=== PATIENT | female | born 1995 | race Caucasian/White ===

== ENCOUNTER 2018-03-28 02:48 | Emergency (ER) | payer BC, OTHER ==
[~2018-03-28] VITALS: Ht 154.9 cm; Wt 71.0 kg
[~2018-03-28 02:48] MED LIST: IBUP-1223 PO
[2018-03-28] MEDS ORDERED: METOCLOPRAMIDE 5 MG/ML, 2ML ONE (03:18)
[2018-03-28] MEDS ORDERED: MORPHINE SULFATE 4 MG/ML, 1ML ONE (03:18)
[2018-03-28 03:29] LABS: MICROSCOPIC AUTO
[2018-03-28] MEDS ORDERED: MORPHINE SULFATE 4 MG/ML, 1ML IVPush PRN (03:30)
[2018-03-28] MEDS ORDERED: METOCLOPRAMIDE 5 MG/ML, 2ML IVPush ONE (03:30)
[2018-03-28 03:36] LABS: BASOPHILS # (AUTO) 0.03 x10^3/uL (0-0.1); BASOPHILS % (AUTO) 0 % (0-1); EOSINOPHILS # (AUTO) 0.04 x10^3/uL (0-0.4); EOSINOPHILS % (AUTO) 1 % (1-7); LYMPHOCYTES # (AUTO) 1.74 x10^3/uL (1-3.4); LYMPHOCYTES % (AUTO) 21 % (22-44); MD NO; MEAN CORPUSCULAR HEMOGLOBIN 30.4 pg (27.0-34.8); MEAN CORPUSCULAR HGB CONC 33.7 g/dL (32.4-35.8); MEAN CORPUSCULAR VOLUME 90.2 fL (80-100); MEAN PLATELET VOLUME 8.3 fL (7.4-10.4); MONOCYTES # (AUTO) 0.53 x10^3/uL (0.2-0.8); MONOCYTES % (AUTO) 6 % (2-9); NEUTROPHILS # (AUTO) 6.14 x10^3/uL (1.8-6.8); NEUTROPHILS % (AUTO) 72 % (42-75); PLATELET COUNT 207 x10^3/uL (130-400); RED BLOOD COUNT 4.56 x10^6/uL (3.82-5.3); RED CELL DISTRIBUTION WIDTH 13.6 % (9.6-15.2)
[2018-03-28 03:37] LABS: CULTURE INDICATED? YES
[2018-03-28 03:48] LABS: ALANINE AMINOTRANSFERASE 56 U/L (12-78); ALBUMIN 3.8 g/dL (3.4-5.0); ANION GAP 9 mmol/L (5-15); CALCIUM 8.5 mg/dL (8.5-10.1); CHLORIDE 106 mmol/L (98-107); CREATININE 0.92 mg/dL (0.55-1.02)
[2018-03-28 03:52] LABS: ALKALINE PHOSPHATASE 60 U/L (45-117); BILIRUBIN,TOTAL 0.7 mg/dL (0.2-1.0); TOTAL PROTEIN 7.2 g/dL (6.4-8.2)
[2018-03-28 05:10] VITALS: BP 99/55
== END 2018-03-28 05:13 | disposition home or self-care (01) ==
LOC: ED 05:05
DX: K80.20 Calculus of gallbladder without cholecystitis without obstruction (principal)
CPT/HCPCS: 36415; 76700; 80053; 81001; 83690; 84703; 85025; 87086; 96374; 96375; 99285; J2765

== ENCOUNTER 2019-01-11 05:56 | Day surgery (SDC) | payer BC, MEDICAID, OTHER ==
[~2019-01-11] VITALS: Ht 154.9 cm; Wt 75.0 kg
[2019-01-11 07:01] LABS: BASOPHILS # (AUTO) 0.02 x10^3/uL (0-0.1); BASOPHILS % (AUTO) 0 % (0-1); EOSINOPHILS # (AUTO) 0.11 x10^3/uL (0-0.4); EOSINOPHILS % (AUTO) 2 % (1-7); LYMPHOCYTES # (AUTO) 2.17 x10^3/uL (1-3.4); LYMPHOCYTES % (AUTO) 37 % (22-44); MD NO; MEAN CORPUSCULAR HEMOGLOBIN 30.9 pg (27.0-34.8); MEAN CORPUSCULAR HGB CONC 33.4 g/dL (32.4-35.8); MEAN CORPUSCULAR VOLUME 92.3 fL (80-100); MEAN PLATELET VOLUME 8.1 fL (7.4-10.4); MONOCYTES # (AUTO) 0.42 x10^3/uL (0.2-0.8); MONOCYTES % (AUTO) 7 % (2-9); NEUTROPHILS # (AUTO) 3.06 x10^3/uL (1.8-6.8); NEUTROPHILS % (AUTO) 53 % (42-75); PLATELET COUNT 281 x10^3/uL (130-400); RED CELL DISTRIBUTION WIDTH 13.1 % (9.6-15.2)
[2019-01-11 07:08] LABS: ALANINE AMINOTRANSFERASE 21 U/L (12-78); ALBUMIN 3.9 g/dL (3.4-5.0); ANION GAP 7 mmol/L (5-15); CALCIUM 8.4 mg/dL (8.5-10.1); CHLORIDE 110 mmol/L (98-107); CREATININE 1.08 mg/dL (0.55-1.02)
[2019-01-11 07:11] LABS: ALKALINE PHOSPHATASE 62 U/L (45-117); BILIRUBIN,TOTAL 0.4 mg/dL (0.2-1.0); TOTAL PROTEIN 7.4 g/dL (6.4-8.2)
[2019-01-11] MEDS ORDERED: CEFOTETAN PMX 1GM/50ML 0 ML ONE (07:19)
[2019-01-11] MEDS ORDERED: CEFOTETAN PMX 2GM/50ML 50 ML IV ONE (07:30)
[2019-01-11 07:32] VITALS: BP 98/65
--- NOTE | 2019-01-11 08:25 | NUR ---
PT HAS CO OF NAUSEA AND ABDOMINAL PAIN. PT DENIES ANY PAIN OR NAUSEA AT THIS TIME. MEDICATED PER MD ORDERS. PT RESTING COMFORTABLE, DOES NOT APPEAR IN DISTRESS.
--- NOTE | 2019-01-11 08:29 | NUR ---
REPORT GIVE TO OSCAR IN PREOP. PT RTG. IN GOWN, IV ESTABLISHED. WILL OBTAIN UA.
--- NOTE | 2019-01-11 08:53 | NUR ---
PT TRANSFERRED TO PREOP. VS STABLE. UA OBTAINED. PT IN GOWN
[2019-01-11] MEDS ORDERED: BUPIVACAINE/PF 0.5% ONE (10:52)
[2019-01-11] MEDS ORDERED: MIDAZOLAM 1 MG/ML, 2ML ONE (11:07)
[2019-01-11] MEDS ORDERED: FENTANYL PF 250 MCG/5ML ONE (11:08)
[2019-01-11] MEDS ORDERED: EPINEPHRINE 1 MG/ML, 1ML INFIL ONE (11:20)
[2019-01-11] MEDS ORDERED: ONDANSETRON 2MG/ML, 2ML ONE (11:39)
[2019-01-11] MEDS ORDERED: NEOSTIGMINE 1 MG/ML, 10ML ONE (11:39)
[2019-01-11] MEDS ORDERED: SUCCINYLCHOLINE 20 MG/ML, 10ML ONE (11:39)
[2019-01-11] MEDS ORDERED: DEXAMETHASONE 4 MG/ML, 1ML ONE (11:39)
[2019-01-11] MEDS ORDERED: PROPOFOL 10 MG/ML, 20ML ONE (11:39)
[2019-01-11] MEDS ORDERED: GLYCOPYRROLATE 0.2MG/1ML, 5ML ONE (11:39)
[2019-01-11] MEDS ORDERED: CEFAZOLIN 1,000 MG ONE (11:39)
[2019-01-11] MEDS ORDERED: ROCURONIUM 10MG/ML,5ML ONE (11:39)
[2019-01-11] MEDS ORDERED: FENTANYL PF 100 MCG/2ML ONE (12:09)
[2019-01-11] MEDS ORDERED: OXYcodone 5 MG/5 ML ORAL.SOL UDC ONE (12:10)
[2019-01-11] MEDS ORDERED: LABETALOL 5MG/ML, 20ML IV PRN (12:30)
[2019-01-11] MEDS ORDERED: OXYcodone 5 MG/5 ML ORAL.SOL UDC PO PRN (12:30)
[2019-01-11] MEDS ORDERED: MEPERIDINE/PF 25MG/0.5ML IVPush PRN (12:30)
[2019-01-11] MEDS ORDERED: ACETAMINOPHEN 325 MG TABLET PO PRN (12:30)
[2019-01-11] MEDS ORDERED: PROMETHAZINE 25 MG/ML, 1ML IV PRN (12:30)
[2019-01-11] MEDS ORDERED: ALBUTEROL SULFATE 2.5 MG/3 ML NPPB PRN (12:30)
[2019-01-11] MEDS ORDERED: hydrALAzine 20 MG/ML, 1ML IV PRN (12:30)
[2019-01-11] MEDS ORDERED: KETOROLAC 30 MG/1 ML IV PRN (12:30)
[2019-01-11] MEDS ORDERED: FENTANYL PF 100 MCG/2ML IV PRN (12:30)
[2019-01-11] MEDS ORDERED: DIAZEPAM 5 MG/ML, 2ML IVPush PRN (12:30)
[2019-01-11] MEDS ORDERED: HYDROmorphone 2 MG/ML, 1ML IVPush PRN (12:30)
== END 2019-01-11 14:25 | disposition home or self-care (01) ==
LOC: OR 07:53 → OUT 08:49 → EDIP 08:49 → UNDOADMIN 08:49 → EDSTATUS 11:45 → UNDODISIN 14:25 → OUT 14:25
PROVIDERS: ATTEND Emergency Medicine
DX: K80.12 Calculus of gallbladder with acute and chronic cholecystitis without obstruction (principal); Z72.89 Other problems related to lifestyle; Z79.899 Other long term (current) drug therapy; Z98.890 Other specified postprocedural states
CPT/HCPCS: 36415; 47562; 80053; 81025; 83690; 85025; 88304; J0171; J0330; J0690; J1100; J2250; J2405; J2704; J2710; J3010; J3490